=== PATIENT | male | born 1980 | race Caucasian/White ===

== ENCOUNTER 2017-10-02 10:39 | Emergency (ER) | payer BC ==
[2017-10-02 11:26] VITALS: BP 150/88
--- NOTE | 2017-10-02 12:38 | UC ---
Rectal Pain HPI - HPI Summary HPI Summary: ONSET OF PAIN IN RECTUM LAST NIGHT AND FELT A TENDER LUMP. NO BRBPR. DENIES CONSTIPATION. NO PREVIOUS H/O HEMORRHOIDS. - History Of Current Complaint Chief Complaint: UCGeneralIllness Stated Complaint: PERSONAL COMPLAINT Time Seen by Provider: 10/02/17 12:05 Hx Obtained From: Patient Onset/Duration: Sudden Onset, Lasting Hours, Still Present Timing: Constant Severity Initially: Moderate Severity Currently: Moderate Pain Intensity: 7 Pain Scale Used: 0-10 Numeric Location Of Pain: Anal Character: Sharp, Burning Aggravating Factor(s): Sitting, Walking Alleviating Factor(s): Nothing Associated Signs And Symptoms: Positive: External Hemorrhoid. Negative: Rectal Bleeding, Blood-Streaked Stool, Black Tarry Stool, Bright Red Blood w/Stool, Diarrhea, Constipation, Discharge - Allergies/Home Medications Allergies/Adverse Reactions: Allergies Allergy/AdvReac Type Severity Reaction Status Date / Time No Known Allergies Allergy Verified 10/02/17 11:26 PMH/Surg Hx/FS Hx/Imm Hx Previously Healthy: Yes - Surgical History Surgical History: Yes Surgery Procedure, Year, and Place: BILATERAL TUBES IN EAR - Family History Known Family History: Negative: Hypertension - Social History Alcohol Use: Occasionally Substance Use Type: None Smoking Status (MU): Never Smoked Tobacco Have You Smoked in the Last Year: No Review of Systems Constitutional: Negative Skin: Other - EXTERNAL HEMORRHOID Respiratory: Negative Cardiovascular: Negative Gastrointestinal: Negative All Other Systems Reviewed And Are Negative: Yes Physical Exam Triage Information Reviewed: Yes Appearance: Well-Appearing, No Pain Distress, Well-Nourished Vital Signs: Initial Vital Signs Temp 98.5 F 10/02/17 11:22 Pulse 74 10/02/17 11:22 Resp 18 10/02/17 11:22 BP 150/88 10/02/17 11:22 Pulse Ox 100 10/02/17 11:22 Vital Signs Reviewed: Yes Eyes: Positive: Conjunctiva Clear ENT: Positive: Hearing grossly normal Neck: Positive: Supple, No Lymphadenopathy Respiratory: Positive: No respiratory distress, No accessory muscle use Cardiovascular: Positive: Pulses Normal Abdomen Description: Positive: Soft Musculoskeletal: Positive: No Edema Neurological: Positive: Alert Psychological: Positive: Age Appropriate Behavior Skin: Positive: Other - 1.5 CM NON THROMBOSED, TENDER EXTERNAL HEMORRHOID.. Negative: rashes Rectal Pain Course/Dx - Differential Dx/Diagnosis Provider Diagnoses: HEMORRHOID Discharge - Sign-Out/Discharge Documenting (check all that apply): Discharge/Admit/Transfer - Discharge Plan Condition: Stable Disposition: HOME Prescriptions: Hydrocortisone 2.5% CREAM(NF) 1 applic TOPICAL QID PRN #1 tube PRN Reason: Pain Patient Education Materials: Hemorrhoids (ED) Referrals: Hermann Rosen MD [Medical Doctor] - 1 Week Additional Instructions: USE OTC TUCKS COOLING PADS (WITCH UBALDO) AND SITZ BATHS FOR COMFORT. USE THE HYDROCORTISONE UP TO 4 TIMES DAILY. FOLLOW-UP WITH A SURGEON TO DISCUSS TREATMENT OPTIONS. BE SURE TO AVOID STRAINING/CONSTIPATION MUCH A POSSIBLE. STAY HYDRATED AND ENSURE ADEQUATE FIBER INTAKE. - Billing Disposition and Condition Condition: STABLE Disposition: HOME
== END 2017-10-02 12:50 | disposition home or self-care (01) ==
LOC: UCCORT 10:39
DX: K64.5 Perianal venous thrombosis (principal)
CPT/HCPCS: 99202; G0463